=== PATIENT | female | born 1935 | race African-American/Black ===

== ENCOUNTER 2022-02-16 16:47 | Emergency (ER) | payer OTHER, MEDICAID ==
[~2022-02-16] VITALS: Ht 160 cm; Wt 59.0 kg
[2022-02-16] MEDS: ASPIRIN 81MG TABLET PO ONE ×2 (17:00→19:00)
[2022-02-16] MEDS ORDERED: SODIUM CHLORIDE 0.9% 1,000 ML IV ONE (17:00)
[2022-02-16 18:09] LABS: CLARITY URINE CLOUDY (CLEAR); COLOR URINE YELLOW (YELLOW); KETONES URINE NEGATIVE (NEGATIVE); LEUKOCYTE ESTERASE URINE 3+ (NEGATIVE); NITRITE URINE NEGATIVE (NEGATIVE); OCCULT BLOOD URINE 2+ (NEGATIVE); PH URINE 5.5 (4.5-8.0); PROTEIN URINE 1+ (NEGATIVE); SPECIFIC GRAVITY URINE 1.019 (1.005-1.030); UROBILINOGEN URINE 0.2 E.U./dL (0.2-1.0)
[2022-02-16 19:20] LABS: BASOPHILS % 0.2 % (0.0-2.0); HEMATOCRIT. 31.1 % (36.0-48.0); HEMOGLOBIN. 10.3 g/dL (12.0-16.0); LYMPHOCYTES % 9.4 % (20.0-50.0); MEAN CORPUSCULAR HEMOGLOBIN 28.9 pg (28.0-32.0); MEAN CORPUSCULAR VOLUME 87.3 fL (81.0-99.0); MEAN PLATELET VOLUME 8.2 fl (7.4-10.4); MONOCYTES % 5.9 % (2.0-8.0); NEUTROPHILS % 84.5 % (40.0-76.0); PLATELET 461 x1000/uL (130-400); RED BLOOD CELL COUNT 3.56 mill/uL (4.2-5.4); RED CELL DISTRIBUTION WIDTH 17.2 % (11.6-14.6)
[2022-02-16 19:27] LABS: CHLORIDE 108 mEq/L (98-107)
[2022-02-16 19:28] LABS: INR 1.1; PARTIAL THROMBOPLASTIN TIME 26.8 sec (23.4-31.0)
[2022-02-16] MEDS ORDERED: CEFTRIAXONE 2 G PREMIX 50 ML IV ONE (19:30)
[2022-02-16] MEDS ORDERED: CEFTRIAXONE 2 G in DEXTROSE 5% WATER 50 ML IV NR (19:45)
[2022-02-17 02:49] VITALS: BP 139/87
[2022-02-17] MEDS ORDERED: SODIUM CHLORIDE 0.9% 500 ML IV ONE (03:00)
== END 2022-02-17 03:03 | disposition short-term general hospital (02) ==
LOC: ER 16:47
DX: R53.1 Weakness (principal); R62.7 Adult failure to thrive
CPT/HCPCS: 36415; 71045; 80053; 81003; 83605; 83880; 84484; 85025; 85610; 85730; 87077; 87086; 87186; 93005; 96361; 96365; 99285; J0696; J7030; J7040; J7060